=== PATIENT | female | born 1985 | race Caucasian/White ===

== ENCOUNTER → 2021-08-24 | Outpatient (CLI) | payer SELFPAY ==
[2021-08-24 15:41] LABS: BASOPHILS % (AUTO) 0 % (0-10); EOSINOPHILS % (AUTO) 0 % (0-10); HEMATOCRIT 41 % (35-52); HEMOGLOBIN 13.7 g/dL (11.5-16.0); LYMPHOCYTES # (AUTO) 1.8 10^3/uL (1.0-4.0); LYMPHOCYTES % (AUTO) 18 % (12-44); MEAN CORPUSCULAR HEMOGLOBIN 31 pg (25-34); MEAN CORPUSCULAR HGB CONC 34 g/dL (32-36); MEAN CORPUSCULAR VOLUME 93 fL (80-99); MEAN PLATELET VOLUME 10.2 fL (9.0-12.2); MONOCYTES # (AUTO) 0.8 10^3/uL (0.0-1.0); MONOCYTES % (AUTO) 8 % (0-12); NEUTROPHILS # (AUTO) 7.3 10^3/uL (1.8-7.8); NEUTROPHILS % (AUTO) 73 % (42-75); PLATELET COUNT 314 10^3/uL (130-400)
[2021-08-24 21:04] LABS: HEPATITIS C ANTIBODY C Non-Reactive (Non-Reactive)
== END ==
LOC: LABNPT 15:29
PROVIDERS: ATTEND Obstetrics & Gynecology
DX: Z34.01 Encounter for supervision of normal first pregnancy, first trimester (principal); N91.2 Amenorrhea, unspecified; Z3A.00 Weeks of gestation of pregnancy not specified
CPT/HCPCS: 84443; 85025; 86703; 86762; 86780; 86803; 86850; 86900; 86901; 87088; 87340; 87491; 87591

== ENCOUNTER 2022-03-03 03:36 | Inpatient (IN) | payer SELFPAY ==
[2022-03-03] VITALS (18 sets, daily range): BP systolic 106–175; BP diastolic 53–112
[~2022-03-03] VITALS: Ht 165.1 cm; Wt 81.3 kg
[2022-03-03] MEDS ORDERED: PREN-142 PO (03:50)
[2022-03-03] MEDS ORDERED: D5 LR IV SOLUTION 1,000 ML IV ONE (04:07)
[2022-03-03] MEDS: D5 LR IV SOLUTION 1,000 ML IV SCH (04:11)
[2022-03-03 04:20] LABS: BASOPHILS % (AUTO) 0 % (0-10); EOSINOPHILS # (AUTO) 0.1 10^3/uL (0.0-0.3); EOSINOPHILS % (AUTO) 1 % (0-10); HEMATOCRIT 41 % (35-52); HEMOGLOBIN 14.3 g/dL (11.5-16.0); LYMPHOCYTES # (AUTO) 1.7 10^3/uL (1.0-4.0); LYMPHOCYTES % (AUTO) 11 % (12-44); MEAN CORPUSCULAR HEMOGLOBIN 33 pg (25-34); MEAN CORPUSCULAR HGB CONC 35 g/dL (32-36); MEAN CORPUSCULAR VOLUME 96 fL (80-99); MEAN PLATELET VOLUME 10.5 fL (9.0-12.2); MONOCYTES % (AUTO) 7 % (0-12); NEUTROPHILS # (AUTO) 12.5 10^3/uL (1.8-7.8); NEUTROPHILS % (AUTO) 81 % (42-75); PLATELET COUNT 236 10^3/uL (130-400); WHITE BLOOD COUNT 15.4 10^3/uL (4.3-11.0)
[2022-03-03] MEDS ORDERED: LIDOCAINE 1% INJ 10 ML VIAL ONE (04:34)
[2022-03-03] MEDS ORDERED: OXYTOCIN PRE-MIX DRIP 500 ML IV ONE (04:34)
[2022-03-03] MEDS: CATHETER FLUSH 10 ML SYR IV SCH ×2 (05:45→14:00)
[2022-03-03] MEDS ORDERED: TETANUS,DIPTH,PERTUSS P/F (BOOSTRIX) 0.5 ML VIAL IM ONE (06:15)
[2022-03-03] MEDS ORDERED: NALOXONE 0.4 MG/ML 1 ML (NARCAN) VIAL IV PRN (06:15)
[2022-03-03] MEDS ORDERED: OXYTOCIN PRE-MIX DRIP 500 ML IV SCH (06:15)
[2022-03-03] MEDS ORDERED: IBUPROFEN 800 MG (MOTRIN) TAB PO SCH (06:15)
[2022-03-03] MEDS ORDERED: DIBUCAINE 1% OINTMENT 30 GM TUBE TOP PRN (06:30)
[2022-03-03] MEDS: WITCH HAZEL(TUCKS) 40 EA JAR TOP PRN (06:43)
[2022-03-03] MEDS: KETOROLAC 30 MG/ML VIAL IV SCH ×3 (06:43→18:46)
[2022-03-03] MEDS: BENZOCAINE/MENTHOL (DERMOPLAST) 56 ML CAN TP PRN (06:44)
--- NOTE | 2022-03-03 06:52 | History & Physical ---
History and Physical Date Seen by Provider: Mar 03, 2022 Time Seen by Provider: 06:51 This patient is a 36-year-old 1 female patient currently at 38+ weeks gestation who presented with complaint of spontaneous rupture membranes and regular painful contractions. On admission she was 4 to 5 cm. Fairly shortly she was complete began pushing and subsequently had return spontaneous vaginal delivery. See the delivery note. Patient was uncomplicated. Her GBS culture was negative. Allergies are none Medications are vitamins Medical social and surgical histories are per the antepartum record HEENT exam is normal Neck is supple no lymphadenopathy no thyromegaly Abdo is gravid soft nontender nondistended Extremities show no clubbing or cyanosis. There is no Homans' sign. Pelvic exam on my arrival patient was completely dilated 90% effaced vertex presentation +4 station with delivery eminent Laboratory Tests Test 03/03/22 04:10 Range/Units White Blood Count 15.4 H 4.3-11.0 10^3/uL Red Blood Count 4.29 3.80-5.11 10^6/uL Hemoglobin 14.3 11.5-16.0 g/dL Hematocrit 41 35-52 % Mean Corpuscular Volume 96 80-99 fL Mean Corpuscular Hemoglobin 33 25-34 pg Mean Corpuscular Hemoglobin Concent 35 32-36 g/dL Red Cell Distribution Width 12.3 10.0-14.5 % Platelet Count 236 130-400 10^3/uL Mean Platelet Volume 10.5 9.0-12.2 fL Immature Granulocyte % (Auto) 1 % Neutrophils (%) (Auto) 81 H 42-75 % Lymphocytes (%) (Auto) 11 L 12-44 % Monocytes (%) (Auto) 7 0-12 % Eosinophils (%) (Auto) 1 0-10 % Basophils (%) (Auto) 0 0-10 % Neutrophils # (Auto) 12.5 H 1.8-7.8 10^3/uL Lymphocytes # (Auto) 1.7 1.0-4.0 10^3/uL Monocytes # (Auto) 1.0 0.0-1.0 10^3/uL Eosinophils # (Auto) 0.1 0.0-0.3 10^3/uL Basophils # (Auto) 0.0 0.0-0.1 10^3/uL Immature Granulocyte # (Auto) 0.1 0.0-0.1 10^3/uL Assessment and plan 38-week admitted with spontaneous rupture membranes and spontaneous labor. Delivery was eminent see delivery note 39 weeks in labor with spontaneous rupture membrane Allergies and Home Medications Allergies Coded Allergies: No Known Drug Allergies (Unverified , 03/03/22) Patient Home Medication List Home Medication List Reviewed: No Vit No.124/Iron/FA ( Vitamin Tablet) 27 Mg Iron-800 Mcg Tablet, 1 EACH PO DAILY, (Reported) Entered as Reported by: ANDRAE CHAIDEZ on 03/03/22 0350 Last Action: New Order ZOYA FLOREZ MD Mar 03, 2022 06:52
--- NOTE | 2022-03-03 06:54 | OB Labor & Delivery Record ---
Labor & Delivery This patient delivered by term spontaneous vaginal livery a viable female with Apgars of 9 and 9 at 1 and 5 respectively weight that is pending cord blood pH is pending. time was 05 21. The infant delivered over a midline episiotomy under local analgesia. The infant was bulb suctioned on delivery of the head. There was a tight nuchal cord that was released by slipping of the shoulder and that the baby delivered through the lip. The infant was bulb suc tioned on completion of delivery. Umbilical cord went pulses was doubly clamped the father cut the cord the baby was passed to mom's abdomen. Cord bloods were obtained placenta delivered spontaneously Alies it was normal with a three-vessel cord. There may been some evidence of placental abruption. Cervix vagina rectum perineum were examined and found intact except for a poste rior vaginal wall laceration which coalesced with the episiotomy that was performed to shorten second stage of labor due to decreased heart rate and ineffective maternal expulsive effort. The defect was repaired with a single suture of 3-0 Vicryl repeat in usual manner to good hemostasis and good reapproximation. Sponge needle counts were correct on completion of procedure blood loss was around 250 cc. The patient tolerated procedure well and remained in the LDR for recovery the baby remained with mom. As of this dictation is ZOYA Zheng MD Mar 03, 2022 06:54
[2022-03-03] MEDS ORDERED: DOCU100C37 PO (07:00)
[2022-03-03] MEDS ORDERED: IBUP-1780 PO (07:00)
[2022-03-03] MEDS ORDERED: OXYC-199 PO (07:00)
--- NOTE | 2022-03-03 07:01 | Discharge Inst-Surgical ---
Discharge Inst-Surgical Depart Medication/Instructions New, Converted or Re-Newed RX: Other Consults/Follow Up Patient Instructions: As directed Orders & Referrals Follow Up Appt: Call to make follow up appt. for patient in 4 weeks. Activity Per routine post vaginal delivery instructions. Please call in RX to patient pharmacy. Diet as tolerated Patient may shower or tub bathe as desired. Activity Activity as Tolerated: No Diet Discharge Diet: No Restrictions ZOYA FLOREZ MD Mar 03, 2022 07:01
[2022-03-03] MEDS: DOCUSATE SODIUM 100 MG (COLACE) CAP PO SCH ×2 (12:42→19:58)
[2022-03-04 00:54] VITALS: BP 119/65
[2022-03-04] MEDS: CATHETER FLUSH 10 ML SYR IV SCH ×2 (00:54→12:46)
[2022-03-04] MEDS: KETOROLAC 30 MG/ML VIAL IV SCH (00:54)
[2022-03-04 04:35] VITALS: BP 124/77
[2022-03-04] MEDS ORDERED: IBUPROFEN 800 MG (MOTRIN) TAB PO SCH (06:30)
--- NOTE | 2022-03-04 07:10 | Progress Note ---
Standard Progress Note Progress Notes/Assess & Plan Date Seen by a Provider: Mar 04, 2022 Time Seen by a Provider: 07:09 Progress/Assessment & Plan This patient is without complaint. She is ambulating, voiding, tolerating oral intake well and has good pain control. Patient denies chest pain, denies shortness of breath, denies nausea and vomiting, and denies headache. Vital Signs Date Time Temp Pulse Resp B/P (MAP) Pulse Ox O2 Delivery O2 Flow Rate FiO2 03/04/22 04:35 36.6 67 18 124/77 (93) 97 Room Air 03/04/22 00:54 36.4 80 18 119/65 (83) 97 Room Air 03/03/22 21:15 36.6 96 18 127/73 (91) 97 Room Air 03/03/22 17:45 36.5 80 18 124/64 (84) 95 Room Air 03/03/22 12:41 36.4 76 18 126/77 (93) 97 Room Air 03/03/22 08:33 73 18 132/76 (94) Room Air 03/03/22 08:27 37.1 83 18 138/83 (101) Room Air 03/03/22 08:03 78 18 129/81 (97) Room Air 03/03/22 07:33 93 18 125/91 (102) Room Air I & O 03/04/22 06:59 Intake Total 1500 ml Balance 1500 ml Vital signs are stable. Patient is afebrile. The abdomen is benign. Fundus is firm below the umbilicus remission no clubbing or ulcers. There is no.. Pelvic exam was deferred Assessment and plan day #1 status post term spontaneous vaginal livery doing well. Plans for routine convalescent care Final Diagnosis 37-week spontaneous vaginal ZOYA FLOREZ MD Mar 04, 2022 07:10
[2022-03-04] MEDS: DOCUSATE SODIUM 100 MG (COLACE) CAP PO SCH (08:40)
[2022-03-04 08:42] VITALS: BP 127/86
[2022-03-04] MEDS: WITCH HAZEL(TUCKS) 40 EA JAR TOP PRN (12:21)
[2022-03-04] MEDS: BENZOCAINE/MENTHOL (DERMOPLAST) 56 ML CAN TP PRN (12:21)
[2022-03-04] MEDS: D5 LR IV SOLUTION 1,000 ML IV SCH ×2 (12:46→12:47)
== END 2022-03-04 14:00 | disposition home or self-care (01) | DRG 807 ==
LOC: WSo 03:36 → LDRP 03:36 → WSo 04:02 → LDRP 04:02 → WS 08:45
PROVIDERS: ADMIT Obstetrics & Gynecology; ATTEND Obstetrics & Gynecology
PROC: 10E0XZZ Delivery of Products of Conception, External Approach (ICD-10-PCS; principal; 2022-03-03)
PROC: 0KQM0ZZ Repair Perineum Muscle, Open Approach (ICD-10-PCS; 2022-03-03)
DX: O76 Abnormality in fetal heart rate and rhythm complicating labor and delivery (principal); Z37.0 Single live birth; O70.1 Second degree perineal laceration during delivery; Z3A.38 38 weeks gestation of pregnancy
CPT/HCPCS: 36415; 85025; 86780; 86850; 86900; 86901; 99212